=== PATIENT | female | born 1985 | race Hispanic/Latino ===

== ENCOUNTER 2022-11-30 18:59 | Emergency (ER) | payer OTHER ==
[2022-11-30] MEDS ORDERED: IBUP-2070 PO (23:35)
== END 2022-11-30 19:08 | disposition left against medical advice (07) ==
LOC: EDH 18:59
DX: S63.91XA Sprain of unspecified part of right wrist and hand, initial encounter (principal); Z53.21 Procedure and treatment not carried out due to patient leaving prior to being seen by health care provider; X58.XXXA Exposure to other specified factors, initial encounter; Y93.89 Activity, other specified; Y92.89 Other specified places as the place of occurrence of the external cause; Y99.8 Other external cause status

== ENCOUNTER → 2022-11-30 | Emergency (ER) | payer OTHER ==
[~2022-11-30] VITALS: Ht 172.7 cm; Wt 122.5 kg
[~2022-11-30] MED LIST: IBUP-2070 PO; IBUPROFEN 600 MG TABLET PO ONE
[2022-11-30 21:44] VITALS: BP 160/100; PULSE 89; RESP 18
== END ==
LOC: EDH 21:33
DX: S63.8X1A Sprain of other part of right wrist and hand, initial encounter (principal); Z90.49 Acquired absence of other specified parts of digestive tract; Z90.89 Acquired absence of other organs; Z98.890 Other specified postprocedural states; X58.XXXA Exposure to other specified factors, initial encounter; Y93.89 Activity, other specified; Y92.89 Other specified places as the place of occurrence of the external cause; Y99.8 Other external cause status
CPT/HCPCS: 73130